=== PATIENT | female | born 1935 | race Caucasian/White ===

== ENCOUNTER 2019-12-06 13:31 | Observation (INO) ==
[2019-12-06] MEDS ORDERED: ONDANSETRON 4 MG/2 ML VIAL IV STA (14:03)
[2019-12-06 14:20] LABS: Basophils % 0.6 % (0.0-0.8); Eosinophils % 0.4 % (0.00-10.9); Hematocrit 37.8 VOL% (35.7-47.0); Hemoglobin 12.7 GM/DL (12.0-16.0); Immature Granulocytes % 0.4 %; Immature Granulocytes Absolute 0.02 #; Lymphocytes # 1.2 10*3/uL (1.4-4.0); Lymphocytes % 26.2 % (21.3-54.2); Mean Corpuscular HGB Conc 33.6 GM/DL (32-36); Mean Corpuscular Volume 90.9 FL (87-102); Mean Platelet Volume 11.7 FL (9.6-12.0); Monocytes % 5.3 % (1.7-12.7); Neutrophils % 67.1 % (38.7-73.9); Platelet Count 142 T/CUMM (130-400); Red Blood Count 4.16 MC/CUMM (3.8-5.5); Red Cell Distribution Width 12.9 % (9.3-17.3); White Blood Count 4.7 T/CUMM (4-12)
[2019-12-06 14:39] LABS: PT Patient Result 10.6 SECS (9.6-12.2)
[2019-12-06 14:49] LABS: Albumin 3.6 G/DL (3.4-5.0); Bilirubin,Total 0.6 MG/DL (0.2-1.0); Calcium 8.5 MG/DL (8.5-10.1); Total Protein 6.3 G/DL (6.4-8.3)
[2019-12-06] MEDS ORDERED: MAGNESIUM SULF RIDER 2 GM in PREMIX 1 EACH IV PRN (16:06)
[2019-12-06] MEDS ORDERED: ONDANSETRON 4 MG/2 ML VIAL IV PRN (16:06)
[2019-12-06] MEDS ORDERED: DOCUSATE SODIUM 100 MG CAPSULE PO PRN (16:06)
[2019-12-06] MEDS ORDERED: MAGNESIUM SULF RIDER 4 GM in PREMIX 1 EACH IV PRN (16:06)
[2019-12-06] MEDS ORDERED: ACETAMINOPHEN 325 MG TABLET PO PRN (16:06)
[2019-12-06] MEDS ORDERED: hydrALAZINE 20 MG/1 ML VIAL IV PRN (16:11)
[2019-12-06] MEDS ORDERED: ENOXAPARIN 40 MG/0.4 ML SYRINGE SUBCUT SCH (16:30)
[2019-12-06 18:00] LABS: Apearance,Urine CLEAR (Clear); Bilirubin,Urine Negative (Negative); Blood, Urine Negative (Negative); Glucose,Urine (UA) Negative (Negative); Ketones,Urine Negative (Negative); Nitrite,Urine Negative (Negative); Protein,Urine Negative; RBC,Urine 2 /HPF (0-4); Squamous Epithelial Cell,Urine Occasional /HPF (0-10); Urine Color Straw (Yellow); Urine Specific Gravity 1.027 (1.001-1.035); Urine Urobilinogen < 2.0 EU/DL (0.2-1.0); WBC,Urine 24 /HPF (0-6)
[2019-12-06] MEDS: PANTOPRAZOLE 40 MG TABLET PO SCH (20:38)
[2019-12-06] MEDS: SODIUM CHLORIDE 0.45% 1,000 ML IV SCH (20:38)
[2019-12-07 05:01] LABS: Basophils % 0.5 % (0.0-0.8); Eosinophils # 0.1 10*3/uL (0.0-0.87); Eosinophils % 1.5 % (0.00-10.9); Hematocrit 34.4 VOL% (35.7-47.0); Hemoglobin 11.8 GM/DL (12.0-16.0); Immature Granulocytes % 0.2 %; Immature Granulocytes Absolute 0.01 #; Lymphocytes # 2.5 10*3/uL (1.4-4.0); Lymphocytes % 42.5 % (21.3-54.2); Mean Corpuscular HGB Conc 34.3 GM/DL (32-36); Mean Corpuscular Volume 90.5 FL (87-102); Mean Platelet Volume 12.4 FL (9.6-12.0); Monocytes % 11.6 % (1.7-12.7); Neutrophils % 43.7 % (38.7-73.9); Platelet Count 132 T/CUMM (130-400); White Blood Count 5.8 T/CUMM (4-12)
[2019-12-07 05:28] LABS: Bilirubin,Total 0.8 MG/DL (0.2-1.0); Calcium 8.5 MG/DL (8.5-10.1); Osmolality,Calculated 278.5 MOS/KG (273-304); Total Protein 5.8 G/DL (6.4-8.3)
[2019-12-07] MEDS: PANTOPRAZOLE 40 MG TABLET PO SCH (08:03)
[2019-12-07] MEDS ORDERED: LIDOCAINE 1%/EPI INJ 20 ML VIAL ONE (08:28)
[2019-12-07] MEDS ORDERED: TISSUE ADHESIVE 1 EACH APPLICATOR TOP ONE ×2 (08:28→09:04)
[2019-12-07] MEDS ORDERED: ASPIRIN EC 81 MG TABLET PO SCH (09:00)
[2019-12-07] MEDS ORDERED: ESCITALOPRAM 10 MG TABLET PO SCH (09:00)
[2019-12-07] MEDS ORDERED: LIDOCAINE 1%/EPI INJ 20 ML VIAL INFILTRAT ONE (09:04)
[2019-12-07 09:50] VITALS: BP 157/89
[2019-12-07] MEDS: SODIUM CHLORIDE 0.45% 1,000 ML IV SCH (09:53)
== END 2019-12-07 10:31 | disposition home or self-care (01) ==
LOC: N.ED 13:31 → N.EDINP 13:31 → N.TELES 19:46
PROVIDERS: ADMIT Internal Medicine Cardiovascular Disease; ATTEND Internal Medicine Cardiovascular Disease